=== PATIENT | male | born 1990 | race Caucasian/White ===

== ENCOUNTER 2018-10-01 11:41 | Outpatient (REF) | payer MEDICARE, MEDICAID, SELFPAY ==
[2018-10-01 21:52] LABS: Anion Gap 8.3 mmol/L (3-11); BUN 13 mg/dL (7-18); CO2 28.7 mmol/L (21.0-32.0); CREATININE 0.96 mg/dL (0.70-1.30); Calcium 8.9 mg/dL (8.5-10.1); Chloride 104 mmol/L (98-107); Glucose 71 mg/dL (70-100); Potassium 4.5 mmol/L (3.5-5.1); Sodium 141 mmol/L (136-145)
== END 2018-10-01 12:01 ==
LOC: NCHCN 11:41
PROVIDERS: PCP Nurse Practitioner Family; Visit Provider Nurse Practitioner Family
DX: R42 Dizziness and giddiness (principal)
CPT/HCPCS: 80048

== ENCOUNTER 2018-12-01 09:08 | Outpatient (REF) | payer MEDICARE, MEDICAID, SELFPAY ==
[2018-12-01 22:01] LABS: Abs Immature Grans 0.02 k/cumm (0.0-0.09); Absolute Basophil Count 0.04 k/cumm (0.0-0.2); Absolute Eosinophil Count 0.14 k/cumm (0.0-0.7); Absolute Lymphocyte Count 2.14 k/cumm (1.2-3.4); Absolute Monocyte Count 0.56 k/cumm (0.11-0.7); Absolute Neutrophil Count 5.19 k/cumm (1.2-6.7); Basophils % 0.5; Eosinophils % 1.7; HCT 48.1 % (40.0-50.0); HGB 16.3 g/dL (13.5-17.5); Immature Grans % 0.2; Lymphocytes % 26.5; Mean Corp. HGB Concentration 33.9 g/dL (32.0-36.0); Mean Corpuscular Volume 94.3 fL (80-95); Mean Platelet Volume 10.6 fL (8.0-11.0); Monocytes % 6.9; Neutrophils % 64.2; Platelet Count 297 x1000/uL (130-400); RBC Distribution Width 12.6 % (11.8-14.1); White Blood Cell Count 8.09 k/cumm (4.4-10.8)
[2018-12-01 22:06] LABS: ALT 38 U/L (12-78); AST 34 U/L (15-37); Albumin 4.3 g/dL (3.4-5.0); Alkaline Phosphatase 99 U/L (46-116); Anion Gap 12.3 mmol/L (3-11); BUN 13 mg/dL (7-18); Bilirubin, Total 0.6 mg/dL (0.2-1.0); CO2 26.7 mmol/L (21.0-32.0); CREATININE 0.99 mg/dL (0.70-1.30); Calcium 9.6 mg/dL (8.5-10.1); Chloride 104 mmol/L (98-107); Glucose 79 mg/dL (70-100); Potassium 4.8 mmol/L (3.5-5.1); Sodium 143 mmol/L (136-145); Total Protein 7.5 g/dL (6.4-8.2)
== END 2018-12-01 09:28 ==
LOC: NCHCN 09:08
PROVIDERS: PCP Nurse Practitioner Family; Visit Provider Nurse Practitioner Family
DX: R55 Syncope and collapse (principal)
CPT/HCPCS: 80053; 83735; 85025

== ENCOUNTER 2020-03-14 22:43 | Outpatient (REF) | payer OTHER, MEDICAID, SELFPAY ==
[2020-03-14 19:39] LABS: Anion Gap 9.8 mmol/L (3-11); BUN 15 mg/dL (7-18); CO2 28.2 mmol/L (21.0-32.0); CREATININE 0.97 mg/dL (0.70-1.30); Calcium 9.2 mg/dL (8.5-10.1); Chloride 103 mmol/L (98-107); Glucose 82 mg/dL (74-106); Potassium 4.1 mmol/L (3.5-5.1); Sodium 141 mmol/L (136-145); TSH (W/Ref FT4) 1.38 uIU/mL (0.36-3.74)
[2020-03-14 19:53] LABS: Vitamin D 25 Total 17.2 ng/ml (30-100)
== END 2020-03-14 23:03 ==
LOC: NCHCN 22:43
PROVIDERS: PCP Nurse Practitioner Family; Visit Provider Nurse Practitioner Family
DX: F31.9 Bipolar disorder, unspecified (principal); R63.4 Abnormal weight loss; F17.200 Nicotine dependence, unspecified, uncomplicated; R93.6 Abnormal findings on diagnostic imaging of limbs
CPT/HCPCS: 80048; 82306; 84443

== ENCOUNTER 2020-07-27 18:20 | Outpatient (REF) | payer OTHER, MEDICAID, SELFPAY ==
[2020-07-27 15:46] LABS: Abs Immature Grans 0.02 10^3/uL (0.0-0.06); Absolute Basophil Count 0.05 10^3/uL (0.0-0.2); Absolute Eosinophil Count 0.14 10^3/uL (0.0-0.7); Absolute Lymphocyte Count 2.67 10^3/uL (1.2-3.4); Absolute Monocyte Count 0.68 10^3/uL (0.1-0.8); Absolute Neutrophil Count 6.55 10^3/uL (1.2-6.7); Basophils % 0.5; Eosinophils % 1.4; HCT 44.5 % (40.0-50.0); HGB 14.8 g/dL (13.5-17.5); Immature Grans % 0.2; Lymphocytes % 26.4; MCH 31.2 pg (27.0-33.0); MCHC 33.3 % (32.0-36.0); MCV 93.9 fL (80-95); MPV 9.6 fL (8.0-11.0); Monocytes % 6.7; Neutrophils % 64.8; Nucleated RBC 0 %; Platelet Count 313 10^3/uL (130-400); RBC 4.74 10^6/uL (4.36-5.78); RDW-SD 42.2 fL; WBC 10.11 10^3/uL (4.4-10.8)
[2020-07-27 15:58] LABS: C-Reactive Protein 0.18 mg/dL (0.0-0.3); TSH 1.56 uIU/mL (0.36-3.74)
[2020-07-27 22:14] LABS: ESR 2 mm/hr (<or=15)
[2020-07-28 04:45] LABS: Vitamin D 25 Total 27.3 ng/ml (30-100)
[2020-07-28 10:34] LABS: HIV-1/2 Ag & Ab Screen Negative (Negative)
== END 2020-07-27 18:21 | disposition home or self-care (01) ==
LOC: NCHCN 18:20
PROVIDERS: PCP Nurse Practitioner Family; Visit Provider Nurse Practitioner Family
DX: R63.4 Abnormal weight loss (principal); F17.200 Nicotine dependence, unspecified, uncomplicated; E55.9 Vitamin D deficiency, unspecified; Z11.4 Encounter for screening for human immunodeficiency virus [HIV]
CPT/HCPCS: 82306; 85652; 87389; 84443; 85025; 86140

== ENCOUNTER 2023-05-14 12:48 | Outpatient (REF) | payer MEDICARE, MEDICAID, SELFPAY ==
[2023-05-14 16:28] LABS: HCT 45.8 % (40.0-50.0); HGB 15.3 g/dL (13.5-17.5); MCH 31.5 pg (27.0-33.0); MCHC 33.4 % (32.0-36.0); MCV 94 fL (80-95); MPV 9.1 fL (8.0-11.0); Platelet Count 356 10^3/uL (130-400); RBC 4.85 10^6/uL (4.36-5.78); RDW 12.1 % (11.8-14.1); RDW-SD 41.9 fL; WBC 9.54 10^3/uL (4.4-10.8)
[2023-05-14 16:51] LABS: ESR 6 mm/hr (0-15)
[2023-05-14 17:00] LABS: ALT 27 U/L (16-63); AST 28 U/L (15-37); Alkaline Phosphatase 102 U/L (46-116); Anion Gap 11.2 mmol/L (3-11); BUN 10 mg/dL (7-18); Bilirubin, Total 0.3 mg/dL (0.2-1.0); CO2 25.8 mmol/L (21.0-32.0); Calcium 9.1 mg/dL (8.5-10.1); Chloride 102 mmol/L (98-107); Estimated GFR 102.55 (mL/min/1.73m2); Glucose 121 mg/dL (74-106); Potassium 4.5 mmol/L (3.5-5.1); Sodium 139 mmol/L (136-145); TSH (W/Ref FT4) 0.99 uIU/mL (0.36-3.74); Total Protein 7.2 g/dL (6.4-8.2)
[2023-05-14 17:44] LABS: Vitamin D 25 Total 14.9 ng/mL (30-100)
[2023-05-14 21:49] LABS: CRP, High Sensitivity 3.38 mg/L (See Note)
== END 2023-05-14 12:49 | disposition home or self-care (01) ==
LOC: NCHCN 12:48
PROVIDERS: PCP Nurse Practitioner Family; Visit Provider Nurse Practitioner Family
DX: R59.9 Enlarged lymph nodes, unspecified (principal)
CPT/HCPCS: 80053; 82306; 85027; 85652; 86141; 84443

== ENCOUNTER 2024-02-14 15:40 | Outpatient (REF) | payer MEDICARE, MEDICAID, SELFPAY ==
[2024-02-14 15:35] LABS: HCT 45.6 % (40.0-50.0); HGB 15.5 g/dL (13.5-17.5); MCH 32.4 pg (27.0-33.0); MCV 95 fL (80-95); MPV 9.7 fL (8.0-11.0); Platelet Count 344 10^3/uL (130-400); RBC 4.78 10^6/uL (4.36-5.78); RDW 12.3 % (11.8-14.1); RDW-SD 43.7 fL; WBC 12.18 10^3/uL (4.4-10.8)
[2024-02-14 16:15] LABS: ALT 24 U/L (16-63); AST 23 U/L (15-37); Albumin 4.4 g/dL (3.4-5.0); Alkaline Phosphatase 107 U/L (46-116); Anion Gap 11.6 mmol/L (3-11); BUN 13 mg/dL (7-18); Bilirubin, Total 0.36 mg/dL (0.2-1.0); CO2 26.4 mmol/L (21.0-32.0); Calcium 9.2 mg/dL (8.5-10.1); Calculated LDL 101 mg/dL (<100); Chloride 103 mmol/L (98-107); Cholesterol 195 mg/dL (<200); Estimated GFR 101.92 (mL/min/1.73m2); Glucose 89 mg/dL (74-106); HDL Cholesterol 28 mg/dL (40-60); Potassium 4.5 mmol/L (3.5-5.1); Sodium 141 mmol/L (136-145); Total Protein 7.7 g/dL (6.4-8.2); Triglyceride 334 mg/dL (<150); Vitamin D 25 Total 33.8 ng/mL (30-100)
== END 2024-02-14 15:41 | disposition home or self-care (01) ==
LOC: NCHCN 15:40
PROVIDERS: PCP Nurse Practitioner Family; Visit Provider Nurse Practitioner Family
DX: K76.0 Fatty (change of) liver, not elsewhere classified (principal); E55.9 Vitamin D deficiency, unspecified
CPT/HCPCS: 80053; 80061; 82306; 85027